=== PATIENT | male | born 1990 | race Caucasian/White ===

== ENCOUNTER 2016-12-19 | Emergency (ER) | payer SELFPAY | END 2016-12-19 11:14 | disposition home or self-care (01) | DX: S20.212A Contusion of left front wall of thorax, initial encounter (principal); F17.200 Nicotine dependence, unspecified, uncomplicated; Z88.0 Allergy status to penicillin; W20.8XXA Other cause of strike by thrown, projected or falling object, initial encounter | CPT/HCPCS: 71101; 96372; 99284; J1885 ==